=== PATIENT | female | born 1955 | race Caucasian/White ===

== ENCOUNTER → 2016-09-25 | Day surgery (SDC) | payer OTHER ==
[2016-09-25 08:38] LABS: MCH 32.6 pg (25.0-31.0); MCHC 34.1 g/dL (32.0-36.0); MCV 95.6 fL (78.0-100.0); MPV 9.2 fL (6.0-9.5); RBC 4.29 M/uL (4.20-5.40); RDW 13.6 % (11.5-14.0); WBC 5.4 K/uL (4.0-10.5)
[2016-09-25 08:56] LABS: ALBUMIN 4.2 g/dL (3.5-5.0); BILIRUBIN - TOTAL 0.5 mg/dL (0.1-1.0); CREATININE 0.7 mg/dL (0.5-1.0); GLOBULIN (CALCULATION) 2.9 g/dL (2.2-4.2); POTASSIUM 3.7 mmol/L (3.5-5.1); TOTAL PROTEIN 7.1 g/dL (6.4-8.3)
== END | disposition home or self-care (01) ==
LOC: FAS 08:09
PROVIDERS: Surgery
DX: K29.70 Gastritis, unspecified, without bleeding (principal); K44.9 Diaphragmatic hernia without obstruction or gangrene; I10 Essential (primary) hypertension; E78.00 Pure hypercholesterolemia, unspecified; B39.9 Histoplasmosis, unspecified; G47.30 Sleep apnea, unspecified; E87.6 Hypokalemia; Z79.899 Other long term (current) drug therapy
CPT/HCPCS: 36415; 76705; 80053; 88305; J2704

== ENCOUNTER → 2016-12-17 | Day surgery (SDC) | payer OTHER ==
[~2016-12-17] VITALS: Ht 160 cm; Wt 86.6 kg
[2016-12-17 07:37] LABS: HGB 14.3 g/dl (12.5-16.0); MCH 32.7 pg (25.0-31.0); MCHC 34.9 g/dL (32.0-36.0); MCV 93.8 fL (78.0-100.0); MPV 9.2 fL (6.0-9.5); RBC 4.37 M/uL (4.20-5.40); WBC 7.6 K/uL (4.0-10.5)
[2016-12-17 08:05] LABS: ALBUMIN 4.2 g/dL (3.5-5.0); BILIRUBIN - TOTAL 0.8 mg/dL (0.1-1.0); CREATININE 0.8 mg/dL (0.5-1.0); GLOBULIN (CALCULATION) 3.2 g/dL (2.2-4.2); POTASSIUM 3.5 mmol/L (3.5-5.1); TOTAL PROTEIN 7.4 g/dL (6.4-8.3)
== END | disposition home or self-care (01) ==
LOC: FAS 07:45
PROVIDERS: Surgery
DX: K81.1 Chronic cholecystitis (principal); E03.9 Hypothyroidism, unspecified; I10 Essential (primary) hypertension; E78.5 Hyperlipidemia, unspecified; Z79.899 Other long term (current) drug therapy
CPT/HCPCS: 36415; 74300; 80053; 88304; 93005; J0131; J0690; J2405; J2704; J2710; J3010; Q9962